=== PATIENT | female | born 1985 | race Caucasian/White ===

== ENCOUNTER 2017-05-01 09:30 | Emergency (ER) | payer OTHER ==
[~2017-05-01] VITALS: Ht 157.5 cm; Wt 81.6 kg
[~2017-05-01 09:30] MED LIST: ALBUTEROL17 GM; ANEXSIA 5/325 M1 TA1 PO; BROMPHED DM; CIPRO HC OTIC S10 ML OT; CIPRO PO; CIPRODEX OTIC7.5 ML OT; CORTISPORIN-TC10 ML AD; DECADRON; DICLOFENAC PO; ELIMITE60 GM TOP; FLEXERIL10 MG PO; HYDROCODONE-A1 UDTA1 PO; IBUPROFEN PO; KEFLEX PO; NO MEDICATIONS; NORCO 7.5-3251 EACH PO; PEN-VEE K PO; PHENERGAN25 MG PO; PRILOSEC20 MG PO; ROBITUSSIN100 MG/52 PO; ULTRAM PO; VICODIN 5/1 TAB 5/50 PO; VICODIN 5/500 T1 TAB PO; VISTARIL PO; VOLTAREN50 MG PO; VOLTAREN75 MG PO; ZANTAC PO
== END 2017-05-01 10:19 | disposition home or self-care (01) ==
LOC: CFTX 09:30 → CED 09:30 → CFTX 10:09
DX: L23.7 Allergic contact dermatitis due to plants, except food (principal); K21.9 Gastro-esophageal reflux disease without esophagitis; F17.210 Nicotine dependence, cigarettes, uncomplicated; Z90.49 Acquired absence of other specified parts of digestive tract
CPT/HCPCS: 99283